=== PATIENT | female | born 2000 | race Two or more races ===

== ENCOUNTER 2021-04-02 10:37 | Emergency (ER) | payer OTHER ==
[~2021-04-02] VITALS: Ht 167.6 cm; Wt 72.0 kg
[2021-04-02] MEDS ORDERED: IBUPROFEN 800 MG TAB PO ONE (16:30)
[2021-04-02] MEDS ORDERED: TRI-TAB PO (16:37)
[2021-04-02 16:49] VITALS: BP 145/83
== END 2021-04-02 16:53 | disposition home or self-care (01) ==
LOC: M ED 10:37
DX: R10.2 Pelvic and perineal pain (principal); T83.32XA Displacement of intrauterine contraceptive device, initial encounter; Z30.09 Encounter for other general counseling and advice on contraception

== ENCOUNTER 2023-01-21 07:53 | Emergency (ER) | payer OTHER ==
[~2023-01-21] VITALS: Ht 165.1 cm; Wt 80.2 kg
[~2023-01-21 07:53] MED LIST: TRI-TAB PO
[2023-01-21] MEDS ORDERED: predniSONE 20 MG TAB PO ONE (10:15)
[2023-01-21] MEDS ORDERED: FAMOTIDINE 20 MG TAB PO ONE (10:15)
[2023-01-21] MEDS ORDERED: CETIRIZINE (ZyrTEC) 10 MG TAB PO ONE (10:15)
[2023-01-21] MEDS ORDERED: PRED20TA PO (10:23)
[2023-01-21] MEDS ORDERED: CETI10CH PO (10:23)
[2023-01-21 10:29] VITALS: BP 115/65; TEMP 97.9; O2SAT 100
== END 2023-01-21 10:43 | disposition home or self-care (01) ==
LOC: M ED 07:53
DX: R21 Rash and other nonspecific skin eruption (principal); K21.9 Gastro-esophageal reflux disease without esophagitis; F17.200 Nicotine dependence, unspecified, uncomplicated
CPT/HCPCS: 99283; J7512

== ENCOUNTER 2023-01-23 20:01 | Emergency (ER) | payer OTHER ==
[~2023-01-23] VITALS: Ht 165.1 cm; Wt 72.7 kg
[~2023-01-23 20:01] MED LIST changes: +CETI10CH PO; +PRED20TA PO
[2023-01-23 20:02] VITALS: BP 121/71; TEMP 98.8; O2SAT 99
[2023-01-23] MEDS ORDERED: D 50CAP2 (20:06)
== END 2023-01-23 23:49 | disposition left against medical advice (07) ==
LOC: M ED 20:01
DX: Z53.21 Procedure and treatment not carried out due to patient leaving prior to being seen by health care provider (principal)